=== PATIENT | male | born 1975 | race Caucasian/White ===

== ENCOUNTER 2020-07-28 09:59 | Emergency (ER) | payer MEDICAID, SELFPAY ==
--- NOTE | ~2020-07-28 | XR_ITS ---
EXAMINATION: X-RAY BILATERAL HANDS CLINICAL INFORMATION: Tender nodules, contracted. COMPARISON: None TECHNIQUE: Bilateral hands each 3 views FINDINGS: Left hand: Normal bone mineralization. No acute fracture or malalignment. No apparent significant arthropathy. No erosions. No abnormal soft tissue calcification. Right hand: Normal bone mineralization. No acute fracture or malalignment. No apparent significant arthropathy. No erosions. No abnormal calcifications identified. XR/XR hand LT min 3V IMPRESSION: No evidence significant osseous abnormality.
--- NOTE | ~2020-07-28 | XR_ITS ---
EXAMINATION: X-RAY BILATERAL HANDS CLINICAL INFORMATION: Tender nodules, contracted. COMPARISON: None TECHNIQUE: Bilateral hands each 3 views FINDINGS: Left hand: Normal bone mineralization. No acute fracture or malalignment. No apparent significant arthropathy. No erosions. No abnormal soft tissue calcification. Right hand: Normal bone mineralization. No acute fracture or malalignment. No apparent significant arthropathy. No erosions. No abnormal calcifications identified. XR/XR hand RT min 3V IMPRESSION: No evidence significant osseous abnormality.
[2020-07-28 11:51] VITALS: BP 128/74; PULSE 72; RESP 18; TEMP 36.4; O2SAT 96; BMI 25.5
--- NOTE | 2020-07-28 13:08 | ED_ITS ---
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 noted painful lesions on his palms but they have worsened and his fingers are less mobile - thought they were callouses initially MD Complaint: extremity pain Onset (ago): year(s) (1) Pain Consistency: constant Location: left, right and upper extremity Quality: burning and aching Radiation: none Relieving factors: nothing Exacerbating factors: range of motion Associated symptoms: denies other symptoms Related Data Previous Rx's Medication Instructions Recorded cyclobenzaprine 10 mg PO TID PRN #14 tab 07/28/20 ibuprofen 600 mg PO Q6H PRN #30 tab 07/28/20 Allergies Allergy/AdvReac Type Severity Reaction Status Date / Time No Known Allergies Allergy Verified 07/28/20 11:51 [No Known Allergies*] Review of Systems Review of Systems: Constitutional : No Fever, No Chills ENT/Mouth : No Ear Pain, No Hoarseness, No sore throat Eyes: No Eye Pain, No Swelling, No Redness, No Foreign Body Cardiovascular : No Chest Pain, No SOB Respiratory : No Cough, No Dyspnea Gastrointestinal : No Nausea, No Vomiting, No Diarrhea, No abdominal Pain Genitourinary : No Dysuria, No Hematuria Musculoskeletal : positive joint pain, No Myalgias, pos Joint Swelling Skin : pos Skin lacerations, No rash Neuro : No Weakness, No Numbness, No Loss of Consciousness, No Dizziness, No Headache Psych : No Anxiety/Panic, No Depression Heme/Lymph: no easy bruising, no Lymphadenopathy Endocrine : No Polyuria, No Polydipsia All other systems reviewed and are negative PMFSH Past Medical History Attestation statement: The following information was validated with the patient. Medical History Anxiety Bipolar 1 disorder Depression Social History Social History Smoking Status: Current every day smoker Smoked in Last 30 Days: Yes Use of substances other than those prescribed or required for medical reasons: No Advance Directives: No Advance Directives Information Provided: No Physical Exam Vital Signs: Vital Signs: Last Vital Signs Temp 97.6 F 07/28/20 11:51 Pulse 72 07/28/20 11:51 Resp 18 07/28/20 11:51 BP 128/74 07/28/20 11:51 Pulse Ox 96 07/28/20 11:51 Body Mass Index 25.5 Appearance: Alert. Oriented X3. No acute distress. Eyes: Pupils equal, round and reactive to light. ENT: Pharynx normal. Neck: Normal inspection. Neck supple. CVS: Normal heart rate and rhythm. Pulses normal. Respiratory: No respiratory distress. Breath sounds normal. Abdomen: Soft and nontender. Skin: Skin warm and dry. Normal skin color. Normal skin turgor. Extremities: No lower extremity edema. bilateral palms of hand tender painful nodules that are firm and nonmobile on flexor tendons the left hand 4th digit appears tight and slightly contracted, NV intact, no splinter hemorrhages Neuro: Oriented X 3. No motor deficit. No sensory deficit. Course Course Course Narrative: discussed with orthopedics - Dupuytren's contracture follow up with hand in 1 week MDM - Extremity (Nontraumatic) MDM Narrative Medical decision making narrative: 45 yo male with 1 year of painful lesions on palms of hands now causing some bending deformity - will discuss with orthopedics for follow up Lab Data Result diagrams: 07/28/20 13:29 07/28/20 13:29 Labs: Lab Results 07/28/20 07/28/20 Range/Units 13:29 13:29 WBC 10.8 (4.8-10.8) X10*3/uL RBC 4.84 (4.60-5.80) X10*6/uL Hgb 15.4 (14.0-18.0) g/dl Hct 46.2 (42-52) % MCV 95.5 (80-98) fL MCH 31.8 (27.0-33.0) pg MCHC 33.3 (31.0-36.0) g/dl RDW 12.2 (11.0-16.0) % Plt Count 290 (160-400) X10*3/uL MPV 10.0 (9.4-12.4) fL Immature Gran % (Auto) 0.4 (0.0-0.4) % Neut % (Auto) 72.3 (45-73) % Lymph % (Auto) 19.8 L (20-40) % [place] % (Auto) 6.6 (2-11) % Eos % (Auto) 0.5 (0-4) % Baso % (Auto) 0.4 (0-2) % Lymph # (Auto) 2.1 (1.2-4.9) X10*3/uL [place] # (Auto) 0.7 (0.1-1.2) X10*3/uL Eos # (Auto) 0.1 (0.0-0.4) X10*3/uL Baso # (Auto) 0.0 (0.0-0.2) X10*3/uL Abs Immat Gran (auto) 0.04 H (0.00-0.03) X10*3/uL Absolute Neuts (auto) 7.9 (2.0-8.3) X10*3/uL Absolute Nucleated RBC 0.000 (0.0-0.012) X10*3/uL Nucleated RBC % (auto) 0.0 (0.0-0.2) /100WBC Sodium 141 (135-145) mmol/L Potassium 4.5 (3.3-5.1) mmol/L Chloride 103 (96-108) mmol/L Carbon Dioxide 27 (22-29) mmol/L Anion Gap 16 (12-20) BUN 12 (9-16) mg/dL Creatinine 0.81 (0.5-1.4) mg/dL Estim Creat Clear Calc 105.4 Estimated GFR > 60 Random Glucose 86 (60-115) mg/dL Calcium 9.8 (8.4-10.2) mg/dL C-Reactive Protein 0.26 (< or = 0.50) mg/dL Discharge Plan Discharge Clinical Impression: Dupuytren contracture Patient Disposition: Home, Self-Care Instructions: Dupuytren's Contracture (ED) Additional Instructions: return to ED for any worsening symptoms or concerns Prescriptions: New cyclobenzaprine 10 mg tablet 10 mg PO TID PRN (Reason: muscle spasm) Qty: 14 RF: 0 ibuprofen 600 mg tablet 600 mg PO Q6H PRN (Reason: pain) Qty: 30 RF: 0 Referrals: Susy Stark MD [Physician] - 2 weeks Stand Alone Forms: Work/School Release
[2020-07-28 13:37] LABS: MANUAL DIFF FLAG NO
[2020-07-28 13:39] LABS: Basophils Percent Auto 0.4 % (0-2); Eosinophils Absolute Auto 0.1 X10*3/uL (0.0-0.4); Eosinophils Percent Auto 0.5 % (0-4); Hematocrit 46.2 % (42-52); Hemoglobin 15.4 g/dl (14.0-18.0); Imm Gran Abs Auto 0.04 X10*3/uL (0.00-0.03); Imm Gran Pct Auto 0.4 % (0.0-0.4); Lymphocytes Absolute Auto 2.1 X10*3/uL (1.2-4.9); Lymphocytes Percent Auto 19.8 % (20-40); Mean Corpuscular HGB Conc 33.3 g/dl (31.0-36.0); Mean Corpuscular Hemoglobin 31.8 pg (27.0-33.0); Mean Corpuscular Volume 95.5 fL (80-98); Monocytes Absolute Auto 0.7 X10*3/uL (0.1-1.2); Monocytes Percent Auto 6.6 % (2-11); Neutrophils Absolute Auto 7.9 X10*3/uL (2.0-8.3); Neutrophils Percent Auto 72.3 % (45-73); Platelet Count 290 X10*3/uL (160-400); Red Blood Count 4.84 X10*6/uL (4.60-5.80); Red Cell Distribution Width 12.2 % (11.0-16.0); White Blood Count 10.8 X10*3/uL (4.8-10.8)
[2020-07-28 14:02] LABS: Anion Gap 16 (12-20); Blood Urea Nitrogen 12 mg/dL (9-16); C Reactive Protein 0.26 mg/dL (< or = 0.50); Calcium 9.8 mg/dL (8.4-10.2); Carbon Dioxide 27 mmol/L (22-29); Chloride 103 mmol/L (96-108); Creatinine Clr Calc Pharmacy 105.4; Estimated Glomerular Filt Rate > 60; Glucose Random 86 mg/dL (60-115); Potassium 4.5 mmol/L (3.3-5.1); Sodium 141 mmol/L (135-145)
[2020-07-28 14:36] LABS: Erythrocyte Sedimentation Rate 7 MM/HR (0-15)
== END 2020-07-28 14:14 | disposition home or self-care (01) ==
PROVIDERS: Emergency Provider Emergency Medicine; PCP Internal Medicine
DX: M72.0 Palmar fascial fibromatosis [Dupuytren] (principal); M79.642 Pain in left hand; M79.641 Pain in right hand; F31.9 Bipolar disorder, unspecified; F41.9 Anxiety disorder, unspecified; F17.200 Nicotine dependence, unspecified, uncomplicated
CPT/HCPCS: 36415; 73130; 80048; 85025; 85652; 86140; 99283

== ENCOUNTER → 2020-08-11 11:48 | Outpatient (BNVA) | payer MEDICAID, SELFPAY | PROVIDERS: PCP Internal Medicine; Visit Provider Orthopaedic Surgery | DX: M72.0 Palmar fascial fibromatosis [Dupuytren] (principal); M65.342 Trigger finger, left ring finger | CPT/HCPCS: 20550; 99202; J1100 ==

== ENCOUNTER 2022-05-08 16:15 | Emergency (ER) | payer MEDICAID, SELFPAY ==
--- NOTE | ~2022-05-08 | XR_ITS ---
EXAMINATION: XR chest 1V CLINICAL INFORMATION: Reason for Exam etoh ? Fall repeat due to poor initial exam COMPARISON: Chest radiograph 05/08/2022 TECHNIQUE: One view of the chest FINDINGS: Clear lungs. No pneumothorax or pleural effusion. Normal cardiomediastinal silhouette. XR/XR chest 1V IMPRESSION: * Clear lungs.
--- NOTE | ~2022-05-08 | XR_ITS ---
EXAMINATION: XR chest 1V CLINICAL INFORMATION: Reason for Exam etohh trauma ? COMPARISON: Chest radiograph 07/26/2008 TECHNIQUE: One view of the chest FINDINGS: Exam is limited by patient rotation. Low lung volumes with streaky right basilar opacities which may reflect atelectasis however aspiration or infection would be difficult to exclude. Consider repeat radiographs in inspiration. No pneumothorax or pleural effusion. Normal cardiomediastinal silhouette. XR/XR chest 1V IMPRESSION: Exam is limited by patient rotation. Low lung volumes with streaky right basilar opacities which may reflect atelectasis however aspiration or infection would be difficult to exclude. Consider repeat radiographs in inspiration.
--- NOTE | ~2022-05-08 | CT_ITS ---
EXAMINATION: CT HEAD WITHOUT CONTRAST CT CERVICAL SPINE WITHOUT CONTRAST CLINICAL INFORMATION: Fall, altered mental status COMPARISON: None TECHNIQUE: A noncontrast CT of the head and a noncontrast CT of the cervical spine with sagittal and coronal reformats. This CT examination was performed using dose optimization techniques as appropriate, variously including the following: *Automated exposure control *Adjustment of mA and/or kV according to patient size (this includes techniques or standardized protocols for targeted exams where dose is matched to indication/reason for exam; i.e. extremities or head) *Use of iterative reconstruction technique DLP: 977 FINDINGS: No intra-axial or extra-axial hemorrhage. No acute territorial infarct. Ventricles and sulci appear normal. Preservation of hughes-white matter differentiation. No mass, mass effect, or midline shift. No fracture. Partial opacification of the right maxillary sinus. The mastoid air cells and visualized paranasal sinuses are otherwise clear. Normal alignment of the cervical spine. No fracture. No prevertebral soft tissue swelling. Mild to moderate degenerative disc disease from C3-C4 through C6-C7. CT/CT cervical spine wo IV con IMPRESSION: 1. No acute intracranial abnormality. 2. No cervical spine fracture or traumatic subluxation.
--- NOTE | ~2022-05-08 | CT_ITS ---
EXAMINATION: CT HEAD WITHOUT CONTRAST CT CERVICAL SPINE WITHOUT CONTRAST CLINICAL INFORMATION: Fall, altered mental status COMPARISON: None TECHNIQUE: A noncontrast CT of the head and a noncontrast CT of the cervical spine with sagittal and coronal reformats. This CT examination was performed using dose optimization techniques as appropriate, variously including the following: *Automated exposure control *Adjustment of mA and/or kV according to patient size (this includes techniques or standardized protocols for targeted exams where dose is matched to indication/reason for exam; i.e. extremities or head) *Use of iterative reconstruction technique DLP: 977 FINDINGS: No intra-axial or extra-axial hemorrhage. No acute territorial infarct. Ventricles and sulci appear normal. Preservation of hughes-white matter differentiation. No mass, mass effect, or midline shift. No fracture. Partial opacification of the right maxillary sinus. The mastoid air cells and visualized paranasal sinuses are otherwise clear. Normal alignment of the cervical spine. No fracture. No prevertebral soft tissue swelling. Mild to moderate degenerative disc disease from C3-C4 through C6-C7. CT/CT head/brain wo IV con IMPRESSION: 1. No acute intracranial abnormality. 2. No cervical spine fracture or traumatic subluxation.
[2022-05-08 16:19] VITALS: BP 118/67; BP 147/103; PULSE 70; PULSE 90; RESP 16; O2SAT 93; BMI 23.4
--- NOTE | 2022-05-08 16:41 | ED_ITS ---
HPI - General Adult General Chief complaint: ETOH/Substance Use Stated complaint: etoh, emotionally distraught Time Seen by Provider: 05/08/22 16:23 Source: EMS Mode of arrival: EMS Limitations: other (Extremely intoxicated or under the influence) History of Present Illness HPI narrative: This is 47-year-old male history of deep you tree and disease of palms of both hands, alcohol abuse presenting to the emergency department via ambulance with acute alcohol intoxication altered mental status. Patient was brought in by ambulance, according to EMS patient called because patient was too intoxicated. Family is trying to get a section 35 on patient. Patient to intoxicated to answer questions noted to be 88-89% on room air, difficult to arouse, immediately upon arrival a nasopharyngeal airway was inserted the patient Unable to obtain review of systems as patient is too intoxicated not answering questions. Related Data Home Medications Medication Instructions Recorded Confirmed clonidine HCl 0.2 mg tablet 0.2 mg PO BEDTIME 08/11/20 lithium citrate PO 08/11/20 lurasidone 80 mg tablet (Latuda) 80 mg PO QPM 08/11/20 Previous Rx's Medication Instructions Recorded ibuprofen 600 mg tablet 600 mg PO Q6H PRN pain #30 tabs 07/28/20 Allergies Allergy/AdvReac Type Severity Reaction Status Date / Time No Known Allergies Allergy Verified 07/28/20 11:51 [No Known Allergies*] Review of Systems Review of Systems: Yes Unobtainable due to mental status PMFSH Past Medical History Source: old records reviewed and nursing notes reviewed Medical History Anxiety Bipolar 1 disorder Depression Social History Social History Advance Directives: No Advance Directives Information Provided: No Physical Exam ED Vital Signs: Vital Signs - 24 hr 05/08/22 16:19 05/08/22 17:48 05/08/22 19:38 Temperature 98.7 F 98.7 F Pulse Rate 70 74 94 Respiratory Rate 16 18 Blood Pressure 118/67 118/74 Pulse Oximetry 93 94 94 Oxygen Delivery Method Room Air Room Air Room Air BMI result Body Mass Index 23.4 vss Appearance: Awake moving all extremities. Not answering questions. Smells like alcohol.? No acute distress.? Head: Normocephalic, atraumatic, no step-offs or deformities Eyes: Pupils equal, round and reactive to light.? Bilateral conjunctivae injected. ENT: Pharynx normal.? Neck: Normal inspection.? Neck supple.? CVS: Normal heart rate and rhythm.? Pulses normal.? Respiratory: No respiratory distress.? Breath sounds normal.? Abdomen: Soft and nontender.? Skin: Skin warm and dry.? Normal skin color.? Normal skin turgor.? Extremities: No lower extremity edema.? No calf ttp. 5/5 strength to bilateral upper and lower extremities Back: No midline tenderness, no C-spine tenderness, full range of motion, no CVA tenderness bilaterally Neuro: Responding only to painful stimuli. Awake, moving all extremities intermittently. Smells like alcohol, unable to follow commands or answer questions likely secondary to intoxication Course Reevaluation(s) Reevaluation #1: Patient now alert and oriented x3 ambulatory around the department with steady gait normal coordination. Denies SI and HI. CBC appears to be within normal limits, chemistry with no acute findings requiring intervention, salicylates, acetaminophen negative. Urine toxicology negative. Ethanol level 360. Imaging of head pending Time: 17:35 Reevaluation #2: CT of head with no acute intracranial abnormalities. No cervical spine fracture or traumatic subluxation. Patient ambulating around the department without difficulty. Patient much more calm after Ativan. Time: 20:22 Reevaluation #3: According to nursing staff patient making suicidal remarks, at this time patient will be placed on a Section 12, family is working on a Section 35 for tomorrow morning. No acute findings on chest x-ray. At this time patient will be placed into observation at time observation was started patient common cooperative no acute distress will continue to monitor. Time: 20:34 Medications Administered Discontinued Medications Generic Name Dose Route Start Last Admin Trade Name Freq PRN Reason Stop Dose Admin Diphenhydramine HCl 50 mg 05/08/22 18:51 05/08/22 19:22 Diphenhydramine Hcl 25 Mg Capsule PO 05/08/22 18:52 50 mg ONCE ONE Administration Lorazepam 1 mg 05/08/22 18:51 05/08/22 19:22 Lorazepam 1 Mg Tablet PO 05/08/22 18:52 1 mg ONCE ONE Administration Medical Decision Making [facility] Narrative Medical decision making narrative: 1640 47-year-old male presents with suspected acute alcohol intoxication. Physical examination patient very intoxicated not following commands not answering questions. Nasopharyngeal airway was inserted as patient was barely arousable, saturating 88-89% on room air. Likely alcohol intoxication however will rule out other etiologies. Will also obtain head CT to rule out intracranial hemorrhage, traumatic injury. Plan medical clearance including basic labs, acetaminophen, salicylate, ethanol, magnesium, drug screen, will obtain chest x-ray and CT of head and neck. Medical Records Medical records reviewed: Yes I reviewed the patient's medical records. Lab Data Lab results reviewed: Yes I reviewed the patient's lab results. Result diagrams: 05/08/22 17:02 05/08/22 16:55 Labs: Lab Results 05/08/22 05/08/22 05/08/22 Range/Units 16:54 16:55 16:55 WBC (4.8-10.8) X10*3/uL RBC (4.60-5.80) X10*6/uL Hgb (14.0-18.0) g/dl Hct (42.0-52.0) % MCV (80.0-98.0) fL MCH (27.0-33.0) pg MCHC (31.0-36.0) g/dl RDW (11.0-16.0) % Plt Count (160-400) X10*3/uL MPV (9.4-12.4) fL Immature Gran % (Auto) (0.0-0.4) % Neut % (Auto) (45-73) % Lymph % (Auto) (20-40) % [place]offey % (Auto) (2-11) % Eos % (Auto) (0-4) % Baso % (Auto) (0-2) % Lymph # (Auto) (1.2-4.9) X10*3/uL [place] # (Auto) (0.1-1.2) X10*3/uL Eos # (Auto) (0.0-0.4) X10*3/uL Baso # (Auto) (0.0-0.2) X10*3/uL Abs Immat Gran (auto) (0.00-0.03) X10*3/uL Absolute Neuts (auto) (2.0-8.3) x10*3/uL Absolute Nucleated RBC (0.0-0.012) X10*3/uL Nucleated RBC % (auto) (0.0-0.2) /100WBC Sodium 138 (135-145) mmol/L Potassium 3.7 (3.3-5.1) mmol/L Chloride 106 (96-108) mmol/L Carbon Dioxide 25 (22-29) mmol/L Anion Gap 11 L (12-20) BUN 8 L (9-16) mg/dL Creatinine 0.79 (0.5-1.4) mg/dL Estim Creat Clear Calc 102.0 Estimated GFR > 60 Random Glucose 103 (60-115) mg/dL Calcium 9.2 D (8.4-10.2) mg/dL Magnesium 2.2 (1.6-2.6) mg/dL Total Bilirubin 0.4 (0.0-1.0) mg/dL AST 49 H (5-37) U/L ALT 36 (0-40) U/L Alkaline Phosphatase 74 (39-117) U/L Total Protein 6.9 (6.5-8.0) g/dL Albumin 4.2 (3.5-5.0) g/dL Salicylates < 5.0 L (15-30) mg/dL Urine Opiates Screen (Not Detect) Urine Fentanyl Screen (Not Detect) Acetaminophen < 1 (<30) mcg/mL Ur Barbiturates Screen (Not Detect) Ur Phencyclidine Scrn (Not Detect) Ur Amphetamines Screen (Not Detect) U Benzodiazepines Scrn (Not Detect) Urine Cocaine Screen (Not Detect) U Marijuana (THC) Screen (Not Detect) Ethyl Alcohol 360 H* mg/dL COVID-19 ([facility]) Negative (Negative) COVID-19 Clin Com See Note 05/08/22 05/08/22 Range/Units 17:02 17:14 WBC 9.9 (4.8-10.8) X10*3/uL RBC 4.20 L (4.60-5.80) X10*6/uL Hgb 13.7 L (14.0-18.0) g/dl Hct 40.2 L (42.0-52.0) % MCV 95.7 (80.0-98.0) fL MCH 32.6 (27.0-33.0) pg MCHC 34.1 (31.0-36.0) g/dl RDW 11.8 (11.0-16.0) % Plt Count 231 (160-400) X10*3/uL MPV 10.1 (9.4-12.4) fL Immature Gran % (Auto) 0.2 (0.0-0.4) % Neut % (Auto) 68.5 (45-73) % Lymph % (Auto) 22.8 (20-40) % [place]offey % (Auto) 6.9 (2-11) % Eos % (Auto) 0.8 (0-4) % Baso % (Auto) 0.8 (0-2) % Lymph # (Auto) 2.3 (1.2-4.9) X10*3/uL [place]y # (Auto) 0.7 (0.1-1.2) X10*3/uL Eos # (Auto) 0.1 (0.0-0.4) X10*3/uL Baso # (Auto) 0.1 (0.0-0.2) X10*3/uL Abs Immat Gran (auto) 0.02 (0.00-0.03) X10*3/uL Absolute Neuts (auto) 6.8 (2.0-8.3) x10*3/uL Absolute Nucleated RBC 0.000 (0.0-0.012) X10*3/uL Nucleated RBC % (auto) 0.0 (0.0-0.2) /100WBC Sodium (135-145) mmol/L Potassium (3.3-5.1) mmol/L Chloride (96-108) mmol/L Carbon Dioxide (22-29) mmol/L Anion Gap (12-20) BUN (9-16) mg/dL Creatinine (0.5-1.4) mg/dL Estim Creat Clear Calc Estimated GFR Random Glucose (60-115) mg/dL Calcium (8.4-10.2) mg/dL Magnesium (1.6-2.6) mg/dL Total Bilirubin (0.0-1.0) mg/dL AST (5-37) U/L ALT (0-40) U/L Alkaline Phosphatase (39-117) U/L Total Protein (6.5-8.0) g/dL Albumin (3.5-5.0) g/dL Salicylates (15-30) mg/dL Urine Opiates Screen Not Detected (Not Detect) Urine Fentanyl Screen Not Detected (Not Detect) Acetaminophen (<30) mcg/mL Ur Barbiturates Screen Not Detected (Not Detect) Ur Phencyclidine Scrn Not Detected (Not Detect) Ur Amphetamines Screen Not Detected (Not Detect) U Benzodiazepines Scrn Not Detected (Not Detect) Urine Cocaine Screen Not Detected (Not Detect) U Marijuana (THC) Screen Not Detected (Not Detect) Ethyl Alcohol mg/dL COVID-19 ([facility]) (Negative) COVID-19 Clin Com Critical Care Time Critical Care Time Critical Care Time: No Discharge Plan Discharge Clinical Impression: Alcoholic intoxication, Depression, Suicidal ideation Patient Disposition: Still a Patient Prescriptions: No Action ibuprofen 600 mg tablet 600 mg PO Q6H PRN (Reason: pain) Qty: 30 0RF
[2022-05-08 17:06] LABS: MANUAL DIFF FLAG NO
[2022-05-08 17:10] VITALS: PULSE 90
[2022-05-08 17:14] LABS: Basophils Absolute Auto 0.1 X10*3/uL (0.0-0.2); Basophils Percent Auto 0.8 % (0-2); Eosinophils Absolute Auto 0.1 X10*3/uL (0.0-0.4); Eosinophils Percent Auto 0.8 % (0-4); Hematocrit 40.2 % (42.0-52.0); Hemoglobin 13.7 g/dl (14.0-18.0); Imm Gran Abs Auto 0.02 X10*3/uL (0.00-0.03); Imm Gran Pct Auto 0.2 % (0.0-0.4); Lymphocytes Absolute Auto 2.3 X10*3/uL (1.2-4.9); Lymphocytes Percent Auto 22.8 % (20-40); Mean Corpuscular HGB Conc 34.1 g/dl (31.0-36.0); Mean Corpuscular Hemoglobin 32.6 pg (27.0-33.0); Mean Corpuscular Volume 95.7 fL (80.0-98.0); Mean Platelet Volume 10.1 fL (9.4-12.4); Monocytes Absolute Auto 0.7 X10*3/uL (0.1-1.2); Monocytes Percent Auto 6.9 % (2-11); Neutrophils Absolute Auto 6.8 x10*3/uL (2.0-8.3); Neutrophils Percent Auto 68.5 % (45-73); Platelet Count 231 X10*3/uL (160-400); Red Cell Distribution Width 11.8 % (11.0-16.0); White Blood Count 9.9 X10*3/uL (4.8-10.8)
[2022-05-08 17:19] LABS: COVID-19 Test Negative (Negative); IDNOW Serial# BCCEAD1C
[2022-05-08 17:28] LABS: Alanine Aminotransferase 36 U/L (0-40); Albumin Level 4.2 g/dL (3.5-5.0); Alkaline Phosphatase 74 U/L (39-117); Anion Gap 11 (12-20); Aspartate Amino Transferase 49 U/L (5-37); Bilirubin Total 0.4 mg/dL (0.0-1.0); Blood Urea Nitrogen 8 mg/dL (9-16); Calcium 9.2 mg/dL (8.4-10.2); Carbon Dioxide 25 mmol/L (22-29); Chloride 106 mmol/L (96-108); Estimated Glomerular Filt Rate > 60; Ethanol 360 mg/dL; Glucose Random 103 mg/dL (60-115); Magnesium 2.2 mg/dL (1.6-2.6); Potassium 3.7 mmol/L (3.3-5.1); Sodium 138 mmol/L (135-145); Total Protein 6.9 g/dL (6.5-8.0)
[2022-05-08 17:29] LABS: Amphetamine Screen Urine Not Detected (Not Detect); Barbiturates, Urine Not Detected (Not Detect); Benzodiazepines Screen Urine Not Detected (Not Detect); Cannabinoid Screen Urine Not Detected (Not Detect); Cocaine Screen Urine Not Detected (Not Detect); Fentanyl, urine Not Detected (Not Detect); Opiate Screen Urine Not Detected (Not Detect); Phencyclidine Screen Urine Not Detected (Not Detect)
[2022-05-08 17:29] LABS: Acetaminophen LAB < 1 mcg/mL (<30); Salicylate < 5.0 mg/dL (15-30)
[2022-05-08 17:48] VITALS: PULSE 74; TEMP 37.1; O2SAT 94
--- NOTE | 2022-05-08 19:11 | PC.NURSE ---
Idalmis aware of Holly, JAE and [facility]
[2022-05-08] MEDS: LORazepam 1 MG TABLET PO (19:22)
[2022-05-08] MEDS: diphenhydrAMINE HCL 25 MG CAPSULE 50 MG PO (19:22)
[2022-05-08 19:38] VITALS: BP 118/74; PULSE 94; RESP 18; TEMP 37.1; O2SAT 94
--- NOTE | 2022-05-08 21:55 | PC.NURSE ---
patient sleeping, chest rise and fall equal and unlabored. patient is able to make needs known, will continue to round hourly for patient safety
[2022-05-09 01:40] VITALS: BP 106/60; PULSE 71; RESP 18; TEMP 36.6; O2SAT 95
[2022-05-09] MEDS: PHENobarbitaL sodium 130 MG/ML IM ONCE 256 MG IM (03:24)
--- NOTE | 2022-05-09 03:28 | PC.NURSE ---
phenobarbital protocol started. ED Provider aware of CIWA score.
[2022-05-09 05:19] VITALS: BP 134/63; PULSE 85; RESP 17; TEMP 36.8; O2SAT 96
[2022-05-09] MEDS: PHENobarbitaL sodium 130 MG/ML VIAL IM Q3Hx2 192 MG IM ×2 (06:23→08:24)
[2022-05-09 07:44] VITALS: BP 145/75; PULSE 80; RESP 12; TEMP 37.3; O2SAT 97
[2022-05-09 08:25] VITALS: BP 144/72; PULSE 81; RESP 18; TEMP 37.2; O2SAT 99
--- NOTE | 2022-05-09 08:41 | PC.NURSE ---
patient a/ox4 . sid . heart rate regular at 81 beats per minute . breathing even and unlabored , lungs clear throughout . skin pink warm and dry . abdomen soft with positive bowel sounds in all four quadrants .patient medicated with phenobarb taper as ordered . patient denies SI at this time . continues on 1:1 observation . patient aware of plan of care .
--- NOTE | 2022-05-09 13:55 | PC.NURSE ---
Patient s Elizabeth called want patient to return call
== END 2022-05-09 14:02 ==
PROVIDERS: Physician Assistant; Emergency Provider Internal Medicine
DX: F33.1 Major depressive disorder, recurrent, moderate (principal); R45.851 Suicidal ideations; F10.239 Alcohol dependence with withdrawal, unspecified; F43.9 Reaction to severe stress, unspecified; M54.2 Cervicalgia; R51.9 Headache, unspecified; R41.82 Altered mental status, unspecified; Y90.8 Blood alcohol level of 240 mg/100 ml or more; Z20.822 Contact with and (suspected) exposure to COVID-19; Z79.899 Other long term (current) drug therapy
CPT/HCPCS: 36415; 70450; 71045; 72125; 80053; 80143; 80179; 80307; 82077; 83735; 85025; 87635; 96372; 99285; J2560

== ENCOUNTER 2024-04-12 09:10 | Outpatient (REF) | payer MEDICAID, SELFPAY ==
[2024-04-12 10:46] LABS: Lithium 1.67 mmol/L (0.60-1.20)
== END 2024-04-12 09:11 | disposition home or self-care (01) ==
LOC: HO.LAB 09:10
PROVIDERS: PCP Internal Medicine; Visit Provider Registered Nurse
DX: Z79.899 Other long term (current) drug therapy (principal)
CPT/HCPCS: 36415; 80178

== ENCOUNTER 2024-10-22 10:20 | Outpatient (REF) | payer MEDICAID, SELFPAY ==
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
--- OUTSIDE RECORDS SUMMARY | 2024-10-22 11:33 | XMS_ITS | Encounter Summary ---
Author Organization [employer] Address [address] [place] [address] 7 [place] [address] Care Team Providers Care Assistant Store Manager Trainee Name Role Phone Alison Schroeder MD Primary Care Provide r Reason for Visit * Reason Onset Date Comments waiting list 08/22/2024 Encounter Details Date Type Department Care Team ([facility] st Contact Info) Description 08/22/2024 Telephone [facility] ADULT D[facility]AL [address] [place] [address] Ayo Mason DDS [address] [place] [address] waiting list Social History Tobacco Use Types Packs/Day Years Used Date Smoking Tobacco: Every Day Cigarettes Passive Smoke Exposure: Current Smokeless Tobacco: Never Alcohol Use Standard Drinks/Week Comments Not Currently 0 (1 standard drink = 0.6 oz pur e alcohol) Depression Answer Date Recorded Patient Health Questionnaire-9 Score 8 08/05/2022 Housing Stability Answer Date Recorded What is your housing situation today? I have lorelei villaseñor 03/27/[address] you li ve. Do you have problems with any of the following? None of the above 03/27/2023 Food Insecurity Answer Date Recorded Within the past 12 months, y ou worried that your food would run out before you got money to buy more: Never True 03/27/2023 Within the past 12 months,th e food you bought just didn't last and you didn't have enough money to get more: Never True Transportation Answer Date Recorded In the past 12 months, has l ack of transportation kept you from medical appts, meetings, work or from getting things needed for daily living? No 03/27/2023 Utilities Answer Date Recorded In the past 12 months, has t he electric, gas, oil or water company threatened to shut off services in your home? No 03/27/2023 Depression Answer Date Recorded Patient Health Questionnaire-2 Score 1 08/05/2022 Sex and Gender Information Value Date Recorded Sex Assigned at Male 04/04/2022 10:35 AM EDT Legal Sex Male 10:35 AM EDT Gender Identity Male 04/04/2022 10:35 AM EDT Sexual Orientation Choose not to disclose 2021 10:35 AM EDT documented as of this encounter Miscellaneous Notes * Telephone Encounter - Ashely Osmel - 08/22/2024 11:11 AM EDT Patient called in to check status of waiting list for dental visit. Informed that he is still currently on the list and office will call to schedule appt when it is their turn. Informed we have not called them as of yet. documented in this encounter Plan of Treatment Upcoming Encounters Date Type Department Care Team (Late st Contact Info) Description 12/16/2024 2:30 PM EDT Telemedicine [facility] [address] [place] [address] Alison Schroeder MD [address] [place] [address] documented as of this encounter Visit Diagnoses Not on filedocumented in this encounter Additional Health Concerns Assessment Noted Time PHQ-9 Depression Total Score: 8 08/06/19 9:26 AM EST documented as of this encounter Care Teams Assistant Store Manager Trainee Relationship Specialty Start Date End Date Alison Schroeder MD [address] [place], [place] [phone] PCP - General Family Medicine 01/01/19 Sally Pelaez Mechanism AssemblerTax Expert 03/31/23 documented as of this encounter
--- OUTSIDE RECORDS SUMMARY | 2024-10-22 11:33 | XMS_ITS | Encounter Summary ---
Author Organization [employer] Address [address] [place] [address] 7 [place] [address] Care Team Providers Care Sedimentationist Name Role Phone Alison Schroeder MD Primary Care Provide r Reason for Visit * Reason Onset Date Comments chart prep 10/17/2024 Encounter Details Date Type Department Care Team ([facility] st Contact Info) Description 10/17/2024 Telephone [facility] MED[facility] [address] [place], [place] [phone] Alison Schroeder MD [address] [place] [address] chart prep Social History Tobacco Use Types Packs/Day Years Used Date Smoking Tobacco: Every Day Cigarettes Passive Smoke Exposure: Current Smokeless Tobacco: Never Alcohol Use Standard Drinks/Week Comments Not Currently 0 (1 standard drink = 0.6 oz pur e alcohol) Depression Answer Date Recorded Patient Health Questionnaire-9 Score 8 08/05/2022 Housing Stability Answer Date Recorded What is your housing situation today? I have lorelei villaseñor 10/10/[address] you li ve. Do you have problems with any of the following? None of the above 10/10/2024 Food Insecurity Answer Date Recorded Within the past 12 months, y ou worried that your food would run out before you got money to buy more: Never True 10/10/2024 Within the past 12 months,th e food you bought just didn't last and you didn't have enough money to get more: Never True 01/2025 Transportation Answer Date Recorded In the past 12 months, has l ack of transportation kept you from medical appts, meetings, work or from getting things needed for daily living? No 10/10/2024 Utilities Answer Date Recorded In the past 12 months, has t he electric, gas, oil or water company threatened to shut off services in your home? No 10/10/2024 Depression Answer Date Recorded Patient Health Questionnaire-2 Score 1 08/05/2022 Internet Access Answer Date Recorded Internet Access Q1 Yes 10/10/2024 Internet Access Q2 Not on file 10/10/2024 Sex and Gender Information Value Date Recorded Sex Assigned at Male 04/04/2022 10:35 AM EDT Legal Sex Male 10:35 AM EDT Gender Identity Male 04/04/2022 10:35 AM EDT Sexual Orientation Choose not to disclose 2021 10:35 AM EDT documented as of this encounter Miscellaneous Notes * Telephone Encounter - Heidy Stevens [place] - 10/17/2024 11:23 AM EDT Chart Prep Labs: not applicable Images: done Referrals: not applicable Vaccines due: Covid, Flu, PCV20, Hep B, and Zoster Screenings: colonoscopy Overdue care gaps: SBIRT, PHQ-9, JUAN-7, Disability screen, and Tobacco documented in this encounter Plan of Treatment Upcoming Encounters Date Type Department Care Team (Late st Contact Info) Description 12/16/2024 2:30 PM EDT Telemedicine [facility] MED[facility]INE [address] [place] [phone] Alison Schroeder MD [address] [place] [address] documented as of this encounter Visit Diagnoses Not on filedocumented in this encounter Additional Health Concerns Assessment Noted Time PHQ-9 Depression Total Score: 8 08/06/19 23 9:26 AM EST documented as of this encounter Care Teams Sedimentationist Relationship Specialty Start Date End Date Alison Schroeder MD [address] [place] [phone] PCP - General Family Medicine 01/01/19 Sally Pelaez Tafe TeacherEngraving Operator 03/31/23 documented as of this encounter
--- OUTSIDE RECORDS SUMMARY | 2024-10-22 11:33 | XMS_ITS ---
Author Organization [facility] Address [address] [place] [phone] Care Team Providers Care Supervisor Type Bar And Segment Name Role Phone [facility] Primary Care Provider Kim vailable [facility] Unavailable [phone] Carolina Hughes Unavailable Encounters Encounter Location Date Provider Diagnosis [facility] [address] [place], [place] [phone] 12/27/2023 Carolina Hughes Plan Of Treatment No Information Progress Notes * Demetrio SPENCEDOB:1975 (49 yo M)Acc No.[id number]:12/27/2023 Case Management Patient:?Demetrio SPENCE Provider:?Carolina Hughes :1975???Age:48 Y???Sex:Male Maxime e:12/27/2023 Address:[address] [place] [address], [address] [place] [address]- Mailing Address, [facility] Pcp:[facility] Subjective: * Chief Complaints: * ??? * Medical History:? Objective: Assessment: Plan: * Treatment: * Images: Billing Information: * Visit Code:? * Procedure Codes:? Care Plan Details* * Electronic signature of Irwin Hughes on 10/22/2024 at 11:33 AM EDT Sign off status: Pending * Provider:Jim Hughes Date:? Generated for Printi ng/Faxing/eTransmitting on:?10/22/2024 11:33 AM EDT
--- OUTSIDE RECORDS SUMMARY | 2024-10-22 11:33 | XMS_ITS | Clinical Summary ---
Author Organization [employer] Address [address] [facility] [address] [place] [address] Care Team Providers Care Head Chopper Name Role Phone Alison Schroeder MD Primary Care Provide r Allergies No known active allergies Medications * This document contains information received from the source organization and may not represent a complete record from that organization. cloNIDine (Catapres) 0.1 MG tablet Take 0.1 mg by mouth every 8 (eight) hours if needed. 06/10/19 22 Active OLANZapine (ZyPREXA) 10 MG tablet Take 1 tablet by mouth at bedtime. 09/08/19 22 Active neomycin-polym yxin-dexAMETHa sone (Maxitrol) 0.1 % ointmentIndica tions:Hordeolu m externum of right upper eyelid Apply to right eyelid BID x 7 days 3.5 g 06/10/19 23 Active baclofen (Lioresal) 10 MG tabletIndicati ons:Acute bilateral low back pain without sciatica Take 1 tablet (10 mg) by mouth if needed in the morning, at noon, and at bedtime for muscle spasms. 60 tablet 2 08/06/19 23 Active naproxen (Naprosyn) 500 MG tabletIndicati ons:Acute bilateral low back pain without sciatica TAKE 1 TABLET (500 MG) BY MOUTH IN THE MORNING AND AT BEDTIME NEEDED FOR MILD PAIN 40 tablet 2 09/29/19 23 Active Diclofenac Sodium 1 % gelIndications :Acute bilateral low back pain without sciatica APPLY 2 G TOPICALLY IF NEEDED IN THE MORNING AND AT BEDTIME (PAIN). 100 g 2 10/12/19 23 Active hydrOXYzine pamoate (Vistaril) 25 MG capsule Take 25 mg by mouth if needed in the morning and at bedtime. 05/14/20 Active lurasidone (Latuda) 80 MG tablet Take 80 mg by mouth with breakfast. 05/15/20 Active propranolol (Inderal) 20 MG tablet Take 20 mg by mouth 2 times daily. 05/14/20 Active traZODone (Desyrel) 100 MG tablet Take 100 mg by mouth if needed at bedtime. 05/14/20 24 Active acetaminophen (Tylenol Extra Strength) 500 MG tabletIndicati ons:Chronic pain of right knee Take 2 tablets (1,000 mg) by mouth every 8 (eight) hours if needed for mild pain or moderate pain for up to 10 days. 30 tablet 1 10/19/19 25 025 Active lithium 300 MG capsule Take 1 capsule by mouth 2 times daily. 04/08/20 24 025 Discontinued acetaminophen (Tylenol Extra Strength) 500 MG tabletIndicati ons:Chronic pain of right knee Take 2 tablets (1,000 mg) by mouth every 8 (eight) hours if needed for mild pain or moderate pain for up to 10 days. 30 tablet 1 10/19/19 25 025 Discontinued Active Problems Problem Noted Date Diagnosed Date Colon cancer screening 10/18/2024 Chronic pain of right knee 10/18/2024 Restless leg syndrome 10/18/2024 Postural dizziness with presyncope 11/08/2022 Assessment & Plan (11/08/2022 10:25 AM EDT): Pt here for a follow up after he was seen in the ER ( [facility] ) for what it appears to be a presyncopal episode. (No records available ). Pt describes feeling extremely diaphoretic prior to fainting, although reports he never actually lost consciousness. Today he denies any chest pain, denies palpitations. He reports he had an EKG and was told it was normal (records requested ) EKG today: Within normal limits Today vital signs are normal . No orthostatism Etiology ? Vasovagal vs vasomotor vs cardiac Plan: cardiology evaluation, needs an ECHOCARDIOGRAM to rule out cardiac etiology. 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); Chronic pain of right knee; Restless leg syndrome 10/18/2024 Travel 10/17/[address] [address] Alison Schroeder MD chart prep 10/10/2024 Patient Outreach [address] [address] Alison Schroeder MD Pre-visit Planning ((SDOH screening negative tobacco screening positive)) 10/04/2024 1:15 PM EDT Office Visit [facility] [address] [place] [phone] EmilioJovanin, OD Presbyopia (Primary Dx) 09/25/2024 Patient Outreach [address] [address] Alison Schroeder MD Care Coordination (CH[facility] outreach for SDOH PT-1 and food needs-referral completed /) 09/25/2024 Telephone [facility] [address] [place] [phone] Alison Schroeder MD PT1 08/22/2024 Telephone [facility] ADULT DENTAL [address] [place] [phone] Ayo Mason DDS waiting list 08/19/2024 9:45 AM EDT Office Visit [facility] [address] [place], [place] [phone] Chanel Winston, OD Presbyopia (Primary Dx); Nuclear sclerotic cataract of both eyes 08/19/2024 Travel 08/16/2024 Population Health Risk Score [facility] [address] [place] [phone] Provider, Population Health Generic 08/02/2024 Telephone [facility] [address] [place] [address] Alison Schroeder MD No Show 08/01/2024 Telephone [facility] [address] [place] [address] Alison Schroeder MD Chart Prep from Last 3 Months Immunizations Immunization Administration Dates Next Due Influenza injectable quadriv alent IIV4 with preservative 04/30/2019 Influenza injectable quadrivalent preservative f ree 04/08/2022 Pfizer Covid-19 Vaccine 12+ 10/15/2020, Pfizer Covid-19 Vaccine 12+ Bivalent 08/05/2022 Tdap 04/08/2022 Social History Tobacco Use Types Packs/Day Years Used Date Smoking Tobacco: Every Day Cigarettes Passive Smoke Exposure: Current Smokeless Tobacco: Never Tobacco Cessation:Ready to Q uit: Not Asked; Counseling Given: Not Answered Alcohol Use Standard Drinks/Week Comments Not Currently [...] not to disclose 2021 10:35 AM EDT Last Filed Vital Signs Vital Sign Reading Time Taken Comments Blood Pressure 131/80 10/18/2024 2:19 PM EDT Pulse 74 10/18/2024 2:19 PM EDT Temperature 36.1 ??C (97 ??F) 10/18/2024 2:19 PM EDT Respiratory Rate 18 10/18/2024 2:19 PM EDT Oxygen Saturation 95% 11/08/2022 9:28 AM EDT Inhaled Oxygen Concentration - - Weight 77.7 kg (171 lb 3.2 oz) 10/18/2024 2:19 P M EDT Height 170.2 cm (5' 7 ) 10/18/2024 2:19 PM EDT Body Mass Index 26.81 10/18/2024 2:19 PM EDT Plan of Treatment Upcoming Encounters Date Type Department Care Team (Late st Contact Info) Description 12/16/2024 2:30 PM EDT Telemedicine [facility] [address] [place] [address] Alison Schroeder MD [address] [place] [address] Health Maintenance Due Date Last Done Comments CT Colonography 1973 Colonoscopy 1973 Colorectal Cancer Screening 1973 FIT DNA/Cologuard 1973 FIT 1973 FOBT 1973 HIV Screening 1975 Lipid Panel 1973 Sigmoidoscopy 1973 Family Planning (PISQ) 1988 Hepatitis C Screening 1991 Hepatitis B Vaccines (1 of 3 - 19+ 3-dose series) 1992 Pneumococcal Vaccine: 50+ Years (1 of 2 - PCV) 1992 Zoster Vaccines (1 of 2) 2023 Depression Screening 08/06/2023 08/05/2022, 08/05/2022 COVID-19 Vaccine (4 - 2023-2 5 season) 2024 08/05/2022, 10/15/2020, 09/23/2020 Influenza Vaccine (#1) 2024 , 04/30/2019 SDOH Screening 10/10/2025 10/10/2024 Alcohol/Substance Use Screening 10/18/2025 10/18/2024 Disability Screening 10/18/2025 10/18/2024 Tobacco Screening 10/18/2025 10/18/2024 DTaP/Tdap/Td Vaccines (2 - T d or Tdap) 04/08/2032 04/08/2022 RSV Patients and Patients Aged 60 years or older (1 - 1-dose 75+ series) 2048 HIB Vaccines Aged Out No longer eligi ble based on patient's age to complete this topic HPV Vaccines Aged Out No longer eligi ble based on patient's age to complete this topic Hepatitis A Vaccines Aged Out No long er eligible based on patient's age to complete this topic IPV Vaccines Aged Out No longer eligi ble based on patient's age to complete this topic Meningococcal B Vaccine Aged Out No l onger eligible based on patient's age to complete this topic Meningococcal Vaccine Aged Out No mally ian eligible based on patient's age to complete this topic RSV under 20 months Aged Out No longe r eligible based on patient's age to complete this topic Rotavirus Vaccines Aged Out No longer eligible based on patient's age to complete this topic [place] [place] [address] C3 [employer] Care Teams Head Chopper Relationship Specialty Start Date End Date Alison Schroeder MD [address] [place] [phone] PCP - General Family Medicine 01/01/19 Sally Pelaez Video SpecialistCompany Laundry Worker 03/31/23
--- OUTSIDE RECORDS SUMMARY | 2024-10-22 11:33 | XMS_ITS | Encounter Summary ---
Author Organization [employer] Address [address] [facility] 7t [place] [address] Care Team Providers Care Tow Motor Operator Name Role Phone Alison Schroeder MD Primary Care Provide r Reason for Referral * Consultation (Routine) - Authorized Specialty Diagnoses / Procedures Referred By Contlarry t Referred To Contact Gastroenterology Diagnoses Colon cancer screening Alison Schroeder MD [address] [place] [address] Phone: tel: fax: Tiesha Mora [address] [facility] 2nd [address] [place] [address] Phone: tel: fax: Referral ID Status Reason Start Date Expiration Date Visits Requested Visits Authorized [id number] Authorized Specialty Services Required 10/21/2024 10/21/2025 6 6 Encounter Details Date Type Department Care Team (Late st Contact Info) Description 10/18/2024 2:00 PM EDT Office Visit [facility] [address] [place] [phone] Alison Schroeder MD [address] [place] [address] Colon cancer screening; Schizoaffective disorder, bipolar type (CMS/HCC); 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); Chronic pain of right knee; Restless leg syndrome Social History Tobacco Use Types Packs/Day Years [...] AM EDT documented as of this encounter Last Filed Vital Signs Vital Sign Reading Time Taken Comments Blood Pressure 131/80 10/18/2024 2:19 PM EDT Pulse 74 10/18/2024 2:19 PM EDT Temperature 36.1 ??C (97 ??F) 10/18/2024 2:19 PM EDT Respiratory Rate 18 10/18/2024 2:19 PM EDT Oxygen Saturation - - Inhaled Oxygen Concentration - - Weight 77.7 kg (171 lb 3.2 oz) 10/18/2024 2:19 P M EDT Height 170.2 cm (5' 7 ) 10/18/2024 2:19 PM EDT Body Mass Index 26.81 10/18/2024 2:19 PM EDT documented in this encounter Functional Status * Over the last 2 weeks, how often have you been bothered by any of the following problems? Question Answer Date of Assessment Author Feeling nervous, anxious, or on edge 0 10/18/2024 2:20 PM EDT Alistair Brewster MA Not being able to stop or co ntrol worrying 0 10/18/2024 2:20 PM EDT Alistair Brewster MA Worrying too much about diff erent things 0 10/18/2024 2:20 PM EDT Alistair Brewster MA Trouble relaxing 0 10/18/2024 2:20 PM EDT Alistair Mcintosh MA Being so restless that it is hard to sit still 0 10/18/2024 2:20 PM EDT Alistair Brewster MA Becoming easily annoyed or irritable 0 10/18/2024 2:20 PM EDT Alistair Brewster MA Feeling afraid as if somethi ng awful might happen 0 10/18/2024 2:20 PM EDT Alistair Brewster MA JUAN-7 Total Score 0 10/18/2024 2:20 PM EDT Alistair Brewster MA documented as of this encounter Progress Notes * Alison Randhawa MD - 10/18/2024 2:00 PM EDT SUBJECTIVE: Demetrio Simeon is a 49 y.o. year old male who presents for Physical . This time I saw this patient was about 4 to 5 years ago Occupation:disability Lives with:in a program opportunity house - EtOH denies (last time he drink was last week he relapse) - smoking cigarettes 1 pack daily - recreational drug use denies Diet:regular Exercise:sedentary Surgeries/Hospitalizations:none Colonoscopy: referral today PMHx:Restless leg syndrome, alcohol use disorder, schizoaffective (patient has a psychiatrist) FMHx:father HTN, Immunizations: Acute Concerns: Patient here years ago he was diagnosed with restless leg syndrome of his right leg, he used to take medication for this but then he stopped, he tells me now is bothering him a lot and is not lettinghim sleep at night Patient tells me also he has chronic pain on right knee that comes and goes and feels sometimes hisknee can get stuck Social History Social History Narrative Not on file Problem List[1] 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 HENT: Negative. Respiratory: Negative. Cardiovascular: Negative. Gastrointestinal: Negative. Musculoskeletal: Positive for arthralgias. RLS OBJECTIVE: Vitals: 10/18/24 1419 BP: 131/80 BP Location: Left arm Patient Position: Sitting BP Cuff Size: Adult Pulse: 74 Resp: 18 Temp: 97 ??F (36.1 ??C) TempSrc: Oral Weight: 171 lb 3.2 oz (77.7 kg) Height: 5' 7 (1.702 m) Physical Exam Follow Up: Follow up in about 4 weeks (around 11/15/2024) for televisit review of labs . 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) Relevant Orders CBC auto differential Comprehensive Metabolic Panel Hemoglobin A1c HIV-1/2 Antigen and Antibodies, Fourth Generation, with Reflexes Hepatitis C Antibody with Reflex to HCV, RNA, Quantitative, Real-Time PCR Lipid Panel, Standard Vitamin D, 25-Hydroxy, Total, Immunoassay TSH with Reflex to Free T4 Chronic pain of right knee Relevant Medications acetaminophen (Tylenol Extra Strength) 500 MG tablet Restless leg syndrome Relevant Orders Iron And Total Iron Binding Capacity [1] Patient Active Problem List Diagnosis 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 [3] Current Outpatient Medications on File Prior to Visit Medication Sig Dispense Refill baclofen (Lioresal) 10 MG tablet Take 1 tablet (10 mg) by mouth if needed in the morning, at noon, and at bedtime for muscle spasms. 60 tablet 2 cloNIDine (Catapres) 0.1 MG tablet Take 0.1 mg by mouth every 8 (eight) hours if needed. Diclofenac Sodium 1 % gel APPLY 2 G TOPICALLY IF NEEDED IN THE MORNING AND AT BEDTIME (PAIN). 100 g2 hydrOXYzine pamoate (Vistaril) 25 MG capsule Take 25 mg by mouth if needed in the morning and at bedtime. lurasidone (Latuda) 80 MG tablet Take 80 mg by mouth with breakfast. naproxen (Naprosyn) 500 MG tablet TAKE 1 TABLET (500 MG) BY MOUTH IN THE MORNING AND AT BEDTIME NEEDED FOR MILD PAIN 40 tablet 2 rcrjktec-ciyfcntgr-ysdBNTCMvrmzu (Maxitrol) 0.1 % ointment Apply to right eyelid BID x 7 days 3.5 g0 OLANZapine (ZyPREXA) 10 MG tablet Take 1 tablet by mouth at bedtime. propranolol (Inderal) 20 MG tablet Take 20 mg by mouth 2 times daily. traZODone (Desyrel) 100 MG tablet Take 100 mg by mouth if needed at bedtime. [DISCONTINUED] lithium 300 MG capsule Take 1 capsule by mouth 2 times daily. No current facility-administered medications on file prior to visit. 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) Expected: 10/18/2024 (Approximate), Expires: 10/18/2025 Comprehensive Metabolic Panel Lab Routine Schizoaffective disorder, bipolar type (CMS/HCC) 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) Expected: 10/18/2024 (Approximate), Expires: 10/18/2025 Hemoglobin A1c Lab Routine Schizoaffective disorder, bipolar type (CMS/HCC) 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) Expected: 10/18/2024 (Approximate), Expires: 10/18/2025 HIV-1/2 Antigen and Antibodies, Fourth Generation, with Reflexes Lab Routine Schizoaffective disorder, bipolar type (CMS/HCC) 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) Expected: 10/18/2024 (Approximate), Expires: 10/18/2025 Hepatitis C Antibody with Reflex to HCV, RNA, Quantitative, Real-Time PCR Lab Routine Schizoaffective disorder, bipolar type (CMS/HCC) 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) Expected: 10/18/2024, Expires: 10/18/2025 Lipid Panel, Standard Lab Routine Schizoaffective disorder, bipolar type (CMS/HCC) 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) Expected: 10/18/2024 (Approximate), Expires: 10/18/2025 Vitamin D, 25-Hydroxy, Total, Immunoassay Lab Routine Schizoaffective disorder, bipolar type (CMS/HCC) 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) Expected: 10/18/2024 (Approximate), Expires: 10/18/2025 TSH with Reflex to Free T4 Lab Routine Schizoaffective disorder, bipolar type (CMS/HCC) 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) Expected: 10/18/2024 (Approximate), Expires: 10/18/2025 Iron And Total Iron Binding Capacity Lab Routine Restless leg syndrome Expected: 10/18/2024, Expires: 10/18/2025 Scheduled Referrals Name Type Priority Associated Diagnoses Order Schedule Referral to Gastroenterology Outpatient Referral Routine Colon cancer screening Expected: 10/18/2024 (Approximate), Expires: 10/18/2025 documented as of this encounter Visit Diagnoses Diagnosis Colon cancer screening Special screening for malignant neoplasms, colon Schizoaffective disorder, bipolar type (CMS/HCC) Schizoaffective disorder, unspecified condition 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
--- OUTSIDE RECORDS SUMMARY | 2024-10-22 11:33 | XMS_ITS | Encounter Summary ---
Author Organization [employer] Address [address] [place] [address] 7 [place] [address] Care Team Providers Care Lead Press Operator Name Role Phone Alison Schroeder MD Primary Care Provide r Reason for Visit * Reason Onset Date Comments PT1 09/25/2024 Encounter Details Date Type Department Care Team ([facility] st Contact Info) Description 09/25/2024 Telephone [facility] [address] [place], [place] [phone] Alison Schroeder MD [address] [place] [address] PT1 Social History Tobacco Use Types Packs/Day Years Used Date Smoking Tobacco: Every Day Cigarettes Passive Smoke Exposure: Current Smokeless Tobacco: Never Alcohol Use Standard Drinks/Week Comments Not Currently 0 (1 standard drink = 0.6 oz pur e alcohol) Depression Answer Date Recorded Patient Health Questionnaire-9 Score 8 08/05/2022 Housing Stability Answer Date Recorded What is your housing situation today? I have loerlei villaseñor 03/27/[address] you [...] encounter Miscellaneous Notes * Telephone Encounter - Nicole Machado - 09/25/2024 2:41 PM EDT Patient calling requesting PT1 Home Address verified: Y/N: Yes Provider name or facility name: [facility] Facility Address: [address] [place] [address] Escort needed: Y/N: No Do you have a wheelchair: Y/N: No If yes- Manual or electric: n/a Visits: 1 x month documented in this encounter Plan of Treatment Upcoming Encounters Date Type Department Care Team (Late st Contact Info) Description 12/16/2024 2:30 PM EDT Telemedicine [facility] [address] [place] [phone] Alison Schroeder MD [address] [place] [address] documented as of this encounter Visit Diagnoses Not on filedocumented in this encounter Additional Health Concerns Assessment Noted Time PHQ-9 Depression Total Score: 8 08/06/19 23 9:26 AM EST documented as of this encounter Care Teams Lead Press Operator Relationship Specialty Start Date End Date Alison Schroeder MD [address] [place] [phone] PCP - General Family Medicine 01/01/19 Sally Pelaez Core Blower OperatorAnalytics Consultant 03/31/23 documented as of this encounter
--- OUTSIDE RECORDS SUMMARY | 2024-10-22 11:33 | XMS_ITS | Encounter Summary ---
Author Organization [employer] Address [address] [facility] 7t [place] [address] Care Team Providers Care Hair Tinter Name Role Phone Alison Schroeder MD Primary Care Provide r Encounter Details Date Type Department Care Team (Latest Contact Info) Description 10/21/2024 Travel Social History Tobacco Use Types Packs/Day Years Used Date Smoking Tobacco: Every Day Cigarettes Passive Smoke Exposure: Current Smokeless Tobacco: Never Alcohol Use Standard Drinks/Week Comments Not Currently 0 (1 standard drink = 0.6 oz pur e alcohol) Depression Answer Date Recorded Patient Health Questionnaire-9 Score 8 08/05/2022 Housing Stability Answer Date Recorded What is your housing situation today? I have loreleiverna villaseñor 10/10/[address] you [...] AM EDT documented as of this encounter Plan of Treatment Upcoming Encounters Date Type Department Care Team (Late st Contact Info) Description 12/16/2024 2:30 PM EDT Telemedicine [facility] [address] [place] [address] Alison Schroeder MD [address] [place] [address] documented as of this encounter Visit Diagnoses Not on filedocumented in this encounter Additional Health Concerns Assessment Noted Time PHQ-9 Depression Total Score: 8 08/06/19 23 9:26 AM EST documented as of this encounter Care Teams Hair Tinter Relationship Specialty Start Date End Date Alison Schroeder MD [address] [place] [phone] PCP - General Family Medicine 01/01/19 Sally Pelaez Oxyacetylene Torch OperatorMaterial Processor 03/31/23 documented as of this encounter
--- OUTSIDE RECORDS SUMMARY | 2024-10-22 11:33 | XMS_ITS | Encounter Summary ---
Author Organization [employer] Address [address] [facility] 7t [place] [address] Care Team Providers Care Ceo & Board Director Name Role Phone Alison Schroeder MD Primary Care Provide r Encounter Details Date Type Department Care Team (Latest Contact Info) Description 10/18/2024 Travel Social History Tobacco Use Types Packs/Day [...] AM EDT documented as of this encounter Functional Status * Over the [...] Brewster [place] documented as of this encounter Plan of Treatment Upcoming Encounters Date Type Department Care Team (Late st Contact Info) Description 12/16/2024 2:30 PM EDT Telemedicine [facility] [address] [place] [address] Alison Schroeder MD [address] [place] [address] documented as of this encounter Visit Diagnoses Not on filedocumented in this encounter Additional Health Concerns Assessment Noted Time PHQ-9 Depression Total Score: 8 08/06/19 23 9:26 AM EST documented as of this encounter Care Teams Ceo & Board Director Relationship Specialty Start Date End Date Alison Schroeder MD [address] [place] [address] PCP - General Family Medicine 01/01/19 Sally Pelaez General Accounting ClerkRepairer Finished Metal 03/31/23 documented as of this encounter
--- OUTSIDE RECORDS SUMMARY | 2024-10-22 11:33 | XMS_ITS | Clinical Summary ---
Author Organization [facility] Address [address] [place] [address] Phone Care Team Providers Care Asphalt Screed Operator Name Role Phone Alison Schroeder MD Primary Care Provide r Allergies No known active allergies Medications hydrOXYzine pamoate (VISTARIL) 25 mg capsule Take 1 capsule (25 mg total) by mouth 2 (two) times a day if needed for anxiety. 30 capsule 05/14/2024 Active propranoloL (INDERAL) 20 mg tablet Take 1 tablet (20 mg total) by mouth 2 (two) times a day. 60 tablet 05/14/2024 Active traZODone (DESYREL) 100 mg tablet Take 1 tablet (100 mg total) by mouth at bedtime as needed for sleep. at bedtime 30 tablet 05/14/2024 Active lurasidone (LATUDA) 80 mg tablet Take 1 tablet (80 mg total) by mouth 1 (one) time each day with breakfast. 30 each 05/15/2024 Active nicotine (NICODERM CQ) 21 mg/[address] 1 patch on the skin 1 (one) time each day. 30 each 05/15/2024 Active Active Problems Problem Noted Date Diagnosed Date Sepsis due to cellulitis (CMS/HCC V24, CMS/HCC V 28) 05/06/2024 Encounters Date Type Department Care Team Description 10/21/2024 Telephone Gastroenterology [facility] [address] [facility] 175 [facility] [address] [place] [address] Tiesha Mora MD information needed from Last 3 Months Medical History Medical History Date Comments Anxiety Insomnia Schizoaffective disorder (CMS/[facility] V24, [facility] V 28) Bipolar disorder ([facility] V24, [facility] V28) Family History Medical History Relation Name Comments No Known Problems Mother Relation Name Status Comments Mother Social History Tobacco Use Types Packs/Day Years Used Date Smoking Tobacco: Every Day Cigarettes Tobacco Cessation:Ready to Q uit: Not Asked; [...] on file Sexual Orientation Not on file Obstetrics History Last Filed Vital Signs Vital Sign Reading Time Taken Comments Blood Pressure 97/71 05/14/2024 7:50 AM EST Pulse 66 05/14/2024 7:50 AM EST Temperature 36.7 ??C (98.1 ??F) 05/14/2024 7:50 AM ES T Respiratory Rate 18 05/14/2024 7:50 AM EST Oxygen Saturation 97% 05/14/2024 7:50 AM EST Inhaled Oxygen Concentration - - Weight 61.2 kg (135 lb) 05/06/2024 3:32 PM EST Height 170.2 cm (5' 7 ) 05/06/2024 3:32 PM EST Body Mass Index 21.14 05/06/2024 3:32 PM EST Plan of Treatment Health Maintenance Due Date Last Done Comments Hepatitis B Vaccines (1 of 3 - 19+ 3-dose series) 1992 Pneumococcal Vaccine: 50+ Years (1 of 2 - PCV) 1992 Pneumococcal Vaccine: Pediatrics (0 to 5 Years) and At-Risk Patients (6 to 64 Years) (1 of 2 - PCV) 1992 Zoster Vaccines (1 of 2) 2023 Cholesterol Screening (Lipid Panel) 06/30/2023 Colorectal Cancer Screening: Colonoscopy 06/30/2023 HIV Screening 06/30/2023 Hepatitis C Screening 06/30/2023 Social Influencers of Health Screening 06/30/2023 Depression Screening 08/06/2023 08/05/2022 COVID-19 Vaccine (2023-2 5 season) 2024 08/05/2022, 10/15/2020, 09/23/2020 Influenza Vaccine (Season Ended) 2025 04/08/2022, 04/30/2019 DTaP,Tdap,and Td Vaccines (2 - Td or Tdap) 04/08/2032 04/08/2022 HIB Vaccines Aged Out No longer eligi [...] on patient's age to complete this topic MMR Vaccines Aged Out No longer eligi ble based on patient's age to complete this topic Meningococcal ACWY Vaccine Aged Out N o longer eligible based on patient's age to complete this topic Meningococcal B Vaccine Aged Out No l onger eligible based on patient's age to complete this topic RSV Immunization Patients Under 20 months Aged Out No longer eligible b ased on patient's age to complete this topic Varicella Vaccines Aged Out No longer eligible based on patient's age to complete this topic Insurance MEDICAID - [place] Advance Directives * Full Code - Default (Latest Code Status on File) Date Activated Date Inactivated Comments 05/06/2024 10:17 PM 05/14/2024 4:37 PM This is or magnolia is used when code status has not been discussed with the patient, or code status is otherwise unknown/unconfirmed To update the patient's code status, place a code status order. Do not modify or discontinue any currently active code status orders. * Full Code - Confirmed Date Activated Date Inactivated Comments 05/06/2024 9:58 PM 05/06/2024 10:17 PM This code s tatus was ascertained in the following way: Code status discussion: discussion with patient To update the patient's code status, place a code status order. Do not modify or discontinue any currently active code status orders. Care Teams Asphalt Screed Operator Relationship Specialty Start Date End Date Alison Schroeder MD [address] [place] [phone] PCP - General Internal Medicine 10/21/24
--- OUTSIDE RECORDS SUMMARY | 2024-10-22 11:33 | XMS_ITS | Encounter Summary ---
Author Organization [employer] Address [address] [place] [address] [place] [address] Care Team Providers Care Rock Climbing Team Member Name Role Phone Alison Schroeder MD Primary Care Provide r Encounter Details Date Type Department Care Team (Late Contact Info) Description 10/26/2022 [facility] [employer] [address] [place], [place] [phone] Alison Schroeder MD [address] [place], [place] [phone] Social History Tobacco Use Types Packs/Day Years Used Date Smoking Tobacco: Every Day Cigarettes Passive Smoke Exposure: Current Smokeless Tobacco: Never Alcohol Use Standard Drinks/Week Comments Not Currently 0 (1 standard drink = 0.6 oz pur e alcohol) Depression Answer Date Recorded Patient Health Questionnaire-9 Score 8 08/05/2022 Depression Answer Date Recorded Patient Health Questionnaire-2 [...] Encounters Date Type Department Care Team (Late Contact Info) Description 12/16/2024 2:30 PM EDT Telemedicine [facility] [address] [place] [phone] Alison Schroeder MD [address] [place], [place] [phone] documented as of this encounter Visit Diagnoses Not on filedocumented in this encounter Additional Health Concerns Assessment Noted Time PHQ-9 Depression Total Score: 8 08/06/19 23 9:26 AM EST documented as of this encounter Care Teams Rock Climbing Team Member Relationship Specialty Start Date End Date Alison Schroeder MD [address] [place] [address] PCP - General Family Medicine 01/01/19 Sally Pelaez Cranberry SorterDrop Board Worker 03/31/23 documented as of this encounter
--- OUTSIDE RECORDS SUMMARY | 2024-10-22 11:34 | XMS_ITS | Patient Health Record ---
Author Organization [facility] Address [address] [place] [phone] Care Team Providers Care Heating Technician Name Role Phone [facility] Primary Care Provider Kim vailable [facility] [phone] Carolina Hughes Unavailable Reason For Referral No Information Problems Problem Type SNOMED Code ICD Code Onset Dates Problem Status W/U Status Risk Notes Problem Sheltered homelessness (604775370996195 ) Sheltered homelessness (Z59.01) Active confirmed Encounters Encounter Location Date Provider Diagnosis [facility] [address] [place], [place] [phone] 12/27/2023 Carolina Hughes Plan Of Treatment No Information Insurance Providers Payer Name Payer Address Payer Phone Subscriber Number Group Number Insured Name Patient Relationship to Insured Coverage Start Date Coverage End Date [place] Medicaid PCC [address] [place], [place] [id number] Demetrio Simeon Self - patient is the insured 3
[2024-10-22 11:52] LABS: MANUAL DIFF FLAG NO
[2024-10-22 12:03] LABS: Basophils Absolute Auto 0.1 X10*3/uL (0.0-0.2); Basophils Percent Auto 0.7 % (0-2); Eosinophils Absolute Auto 0.2 X10*3/uL (0.0-0.4); Eosinophils Percent Auto 2.1 % (0-4); Hematocrit 43.9 % (42.0-52.0); Hemoglobin 15.2 g/dl (14.0-18.0); Imm Gran Abs Auto 0.04 X10*3/uL (0.00-0.03); Imm Gran Pct Auto 0.5 % (0.0-0.4); Lymphocytes Absolute Auto 3.1 X10*3/uL (1.2-4.9); Lymphocytes Percent Auto 34.8 % (20-40); Mean Corpuscular HGB Conc 34.6 g/dl (31.0-36.0); Mean Corpuscular Hemoglobin 29.2 pg (27.0-33.0); Mean Corpuscular Volume 84.4 fL (80.0-98.0); Mean Platelet Volume 10.4 fL (9.4-12.4); Monocytes Absolute Auto 0.7 X10*3/uL (0.1-1.2); Monocytes Percent Auto 8.2 % (2-11); Neutrophils Absolute Auto 4.8 x10*3/uL (2.0-8.3); Neutrophils Percent Auto 53.7 % (45-73); Platelet Count 268 X10*3/uL (160-400); Red Cell Distribution Width 13.1 % (11.0-16.0); White Blood Count 8.9 X10*3/uL (4.8-10.8)
[2024-10-22 12:13] LABS: Estimated Average Glucose 105 mg/dL; Hemoglobin A1C 136.5384 umol/L; Hemoglobin A1c % 5.3 % (<6.0); Total Hemoglobin (HGBA1C) 3945.9796 umol/L
[2024-10-22 12:53] LABS: Alanine Aminotransferase 37 U/L (0-40); Albumin Level 4.4 g/dL (3.5-5.0); Alkaline Phosphatase 88 U/L (39-117); Anion Gap 10 (12-20); Aspartate Amino Transferase 54 U/L (5-37); Bilirubin Direct 0.1 mg/dL (0.0-0.5); Bilirubin Total 0.5 mg/dL (0.0-1.0); Blood Urea Nitrogen 15 mg/dL (9-16); Calcium 9.7 mg/dL (8.4-10.2); Carbon Dioxide 27 mmol/L (22-29); Chloride 105 mmol/L (96-108); Cholesterol 240 mg/dL (<200); Estimated Glomerular Filt Rate > 60; Glucose Random 82 mg/dL (60-115); HDL Cholesterol 40 mg/dL (>40); Iron 122 mcg/dL (45-160); LDL Cholesterol Calculated 137 mg/dL (<100); Percent Iron Saturation 42 % (15-50); Potassium 4.6 mmol/L (3.3-5.1); Sodium 137 mmol/L (135-145); TSH reflex Free T4 1.83 uIU/mL (0.32-4.0); Total Iron Binding Capacity 293 mcg/dL (228-428); Total Protein 7.5 g/dL (6.5-8.0); Triglycerides 315 mg/dL (<150); Unsaturated Iron Binding 171 ug/dL; Vitamin D 25-OH Total 33.6 ng/mL (>30)
[2024-10-23 04:00] LABS: HIV AB/AG Nonreactive (Nonreactive); HIV Num 1 0.06 S/CO (0.00-0.99); ~HepC Num1 0.12 S/CO (0.00-0.79); ~Hepatitis C Antibody Nonreactive (Nonreactive)
== END 2024-10-22 10:21 | disposition home or self-care (01) ==
LOC: HO.HHCL 10:20
PROVIDERS: Visit Provider Internal Medicine
DX: F32.9 Major depressive disorder, single episode, unspecified (principal); F41.1 Generalized anxiety disorder; F25.0 Schizoaffective disorder, bipolar type; F10.29 Alcohol dependence with unspecified alcohol-induced disorder; G25.81 Restless legs syndrome
CPT/HCPCS: 36415; 80053; 80061; 82248; 82306; 83036; 83540; 84443; 85025; 86803; 87389